=== PATIENT | female | born 1985 | race Caucasian/White ===

== ENCOUNTER 2019-06-05 12:48 | Emergency (ER) | payer SELFPAY ==
[2019-06-05 12:50] VITALS: BP 123/75; PULSE 140; RESP 18; TEMP 36.6; O2SAT 96; BMI 21.9
--- NOTE | 2019-06-05 13:05 | EKG12_ITS ---
Test Reason : SYNCOPE Blood Pressure : / mmHG Vent. Rate : 103 BPM Atrial Rate : 103 BPM P-R Int : 128 ms QRS Dur : 078 ms QT Int : 380 ms P-R-T Axes : 051 083 049 degrees QTc Int : 497 ms Sinus tachycardia Possible Left atrial enlargement Borderline ECG Confirmed by ARSH WILKES, KRIS ([id number]), editorial intern MARTINEZ FORDE ([id number]) on 06/07/2019 8:32:56 AM Referred By: BERRY Confirmed By:KRIS CABAN MD
[2019-06-05 13:12] VITALS: BP 140/86; PULSE 109; RESP 20; TEMP 36.7; O2SAT 97
--- NOTE | 2019-06-05 13:13 | ED.VISSUMM ---
- ER Visit Summary Date of Service: 06/05/19 Chief Complaint: Syncope History of Present Illness: The patient is a 34 F presenting after syncopal episode. Patient states that she was feeling dizzy and lightheaded. She then had a syncopal episode. She denies injury. She recently moved here from [place]. She was admitted to a psychiatric facility approximately 1 month ago for suicidal ideation and cutting her wrists. At that time she was told that she was anemic with a hemoglobin of 6.9. She did not follow-up for this. She denies heavy menstrual cycles, blood in stool, black stool. She denies possibility of . She states she is having diarrhea 2-3 times per day. She denies abdominal pain, nausea, vomiting. Denies fever or cough. Denies chest pain or shortness of breath. Physical Examination: Vitals are stable. Heart rate 140. Patient is afebrile. Alert no acute distress. HEENT exam is unremarkable. Neck is supple. Lungs are clear and equal bilaterally. Heart is regular and tachycardic. Abdomen is soft nontender nondistended. Extremities are unremarkable. Skin is warm and dry. No focal neurologic deficit. Remainder of exam is unremarkable. Emergency Department Course and Treatment: EKG is sinus tachycardia rate of 103. Orthostatics are positive. CBC shows hemoglobin 10.0. Chemistries show glucose 192, BUN 20, creatinine 1.05. Troponin negative. D-dimer negative. hCG negative. On reevaluation patient is feeling anxious. She was given Ativan p.o. She is feeling improved following IV fluids. On reevaluation, she is now feeling improved and back to baseline. She is given Dr. Rosenbaum on-call for no doctor for follow-up. Advised to return to ED for worsening complaints. Disposition: Discharge home Impression: Syncope This note was generated with [employer] dictation software. It may contain incorrect words, spelling, and punctuation that were not noted in review of the chart prior to signing ED Disposition - Plan for ED Patient: Instructions: SYNCOPE, Unk Cause Referrals: Neil Rosenbaum MD [STAFF PHYSICIAN] - Izabel Aparicio MD [STAFF PHYSICIAN] -
[2019-06-05 13:27] LABS: Absolute Lymphocyte Count 1.98 X10^3/uL (0.83-4.51); Absolute Neutrophil Count 5.9 X10^3/uL (2.0-7.7); Basophil# 0.04 X10^3/uL; Basophil% 0.5 % (0-1); Eosinophil# 0.03 X10^3/uL; Eosinophils% 0.4 % (0-5); Hematocrit 33.7 % (37-47); Lymphocyte # 1.98 X10^3/ul (4.0); Lymphocyte % 23.1 % (19-41); Mean Corp Hgb Conc 29.7 g/dL (32-36); Mean Corpuscular Hgb 23.2 pg (27.0-32.0); Mean Corpuscular Volume 78.2 fL (81-99); Mean Platelet Vol. 12.5 fl (6.2-12.0); Monocyte# 0.58 X10^3/uL; Monocyte% 6.8 % (0-10); NRBC Flagged by Analyzer 0 % (0-5); Neutrophil # 5.87 X10^3/uL (2.7-7.7); Neutrophil % 68.5 % (47-70); Platelet Count 178 K/mm3 (150-450); RBC Distribution Width CV 14.7 % (11.6-14.6); RBC Distribution Width SD 41.7 fl (35.1-43.9); Red Blood Count 4.31 M/mm3 (4.2-5.4); White Blood Count 8.6 K/mm3 (4.4-11.0)
--- NOTE | 2019-06-05 13:30 | NURSING ---
LAB CALLED ABOUT HEMOLIZED LAB
[2019-06-05 13:43] LABS: Anion Gap 12 (5-15); BUN 20 mg/dL (7-18); Calcium,Total 8.6 mg/dL (8.5-10.1); Chloride 103 mmol/L (98-107); Creatinine, Serum 1.05 mg/dL (0.55-1.02); EST Glomerular Filtration Rate 64 mL/min (>60); Est Glom Filt Rate - Afr Amer 77 mL/min (>60); Estimated Creatinine Clearance 73.41 ml/min; Glucose 192 mg/dL (74-106); Potassium 3.7 mmol/L (3.5-5.1); Sodium Level 137 mmol/L (136-145)
[2019-06-05 13:45] LABS: Internal QC Validated? YES +Cl - CLEAR BKGD; Pregnancy, Serum, hCG Quali. NEGATIVE Negative
[2019-06-05 13:53] LABS: D-Dimer Quantitative (DVT/PE) <= 0.27 FEU/ug/m (0.27-0.49)
[2019-06-05 14:13] VITALS: BP 106/77; BP 118/80; BP 148/83; PULSE 114; PULSE 136; PULSE 147; RESP 16; O2SAT 97
[2019-06-05] MEDS: 0.9% Normal Saline 1,000 ML 1000 ML IV (14:13)
[2019-06-05] MEDS: LORazepam 1 MG Tablet PO (14:17)
[2019-06-05] MEDS: 0.9% Normal Saline 1,000 ML 999 ML IV (15:25)
[2019-06-05 15:26] VITALS: BP 148/78; PULSE 106; RESP 17; TEMP 36.3; O2SAT 96
--- NOTE | 2019-06-05 16:20 | ED.DEP ---
ED Disposition - Plan for ED Patient: Instructions: SYNCOPE, Unk Cause Referrals: Neil Rosenbaum MD [STAFF PHYSICIAN] -
--- NOTE | 2019-06-05 16:33 | ED.DEP ---
ED Disposition - Plan for ED Patient: Instructions: SYNCOPE, Unk Cause Referrals: Neil Rosnebaum MD [STAFF PHYSICIAN] - Izabel Aparicio MD [STAFF PHYSICIAN] -
[2019-06-05 16:46] VITALS: BP 128/87; PULSE 107; RESP 16; TEMP 36.8; O2SAT 97
== END 2019-06-05 16:52 | disposition home or self-care (01) ==
PROVIDERS: Emergency Provider Emergency Medicine
DX: R55 Syncope and collapse (principal); R19.7 Diarrhea, unspecified; Z86.2 Personal history of diseases of the blood and blood-forming organs and certain disorders involving the immune mechanism
CPT/HCPCS: 80048; 84484; 84703; 85025; 85379; 93005; 96360; 96361; 99285; J7030; A4216

== ENCOUNTER 2019-06-23 18:45 | Emergency (ER) | payer SELFPAY ==
[2019-06-23 18:47] VITALS: BP 147/100; PULSE 127; RESP 15; TEMP 37.3; O2SAT 99; BMI 21.9
--- NOTE | 2019-06-23 19:10 | ED.DCSUM_ITS ---
History of Present Illness Chief Complaint: Suicidal Informant: Family Onset: Month(s) Maximum Severity: Mild Narrative: Coronavirus/emergency no exposures no symptoms The patient presents with the sister the patient history of bipolar disorder she was discharged from the hospital in [place] related to exacerbation of bipolar suicidal ideation a few months ago she was living with family in [place] she has issues related to taking her meds follow-up etc. she is now moved to live with her sister in the [facility] area. The patient's not been taking any of her medications for both her behavioral health disorder, she has become incre asingly anxious and nervous concerned she might be arrested, occasionally the patient verbalizes suicidal ideation to the sister but nothing specific, the patient has a distant history for illicit drug use including opioids methamphetamine and cocaine none recently at one time she was on Suboxone in the distant past, there is no history of or drug use recently. The sister has arranged for the patient to be admitted to the psychiatric hospital in [facility] but that facility asked that she obtain screening labs before they will accept her the sister is going to drive her to [place] to be admitted to that facility and brought her here to have those tests done the patient has no plan and the sister is comfortable with her discharge home and the sister is very confident she can get her admitted to the facility in [place] as she has been talking to them and has arranged for all that Past Medical History - Allergies and Home Meds Allergies/Adverse Reactions: Allergies No Known Allergies Allergy (Verified 06/23/19 18:46) Primary Care Physician: Care Physician,No Primary [Primary Care Provider] - Past Medical History: - Smoking Status: Never smoker Review of Systems ROS: - Fluids as above General: Denies: Chills, Fever, Sweats Eyes: Denies: Visual changes - bilaterally, Diplopia ENT: Denies: Rhinorrhea, Sore throat Cardiovascular: Denies: Chest pain, Palpitations Respiratory: Denies: Dyspnea, Cough, Dyspnea on exertion Gastrointestinal: Denies: Abdominal pain, Nausea, Vomiting, Diarrhea, Melena, Hematochezia Genitourinary: Denies: Dysuria, Hematuria, Frequency Musculoskeletal: Denies: Back pain, Extremity Pain Skin: Denies: Rash, Wounds Neurological: Denies: Headache, Weakness, Numbness Psych: Reports: Depression, Suicidal thoughts Physical Exam Vital Signs/Narrative: Vital Signs Temp Pulse Resp BP Pulse Ox 06/23/19 18:47 99.1 F 127 H 15 147/100 H 99 General: Well nourished, Well developed, No Acute Distress Head: Normocephalic, Atraumatic Eyes: Perrl, EOMI ENT: Moist mucous membranes, No rhinorrhea Neck: Supple, Nontender Cardiovascular: Regular rate, Regular rhythm, No murmurs Respiratory: No distress, CTA bilaterally, Chest nontender Abdomen: Soft, Nontender, Nondistended, Normal bowel sounds Back: Nontender, Normal Inspection Extremities: Nontender, No edema Skin: Normal color, No rash Neurological: Alert, Oriented x3, Cranial nerves II-XII grossly intact, Normal Strength, Normal Sensation Psychological: Normal affect, Normal Mood Diagnostic/Tx/Re-eval - Medical Decision Making The patient reluctantly agreed to provide the blood testing through for the medical screening, she does not wish to provide urinalysis at this time we discussed all the above with the sister confirm with her that she is able to take her sister to [place] to be admitted to that facility per the instruction she was given by the [facility], at this time will provide assist with copies of the medical screening labs and she will be discharged with sister to follow-up with per the sister is called the [facility] The suicidal ideation is also something that is been intermittent and longstanding and again the sister is very comfortable with this plan Home stable with sister to be admitted to a mental health facility in [facility] Final impression Exacerbation of bipolar disorder, suicidal ideation ED Disposition - Plan for ED Patient: Diagnosis: Suicidal ideation Referrals: Care Physician,No Primary [Primary Care Provider] - Additional Instructions: Follow-up for admission with the [facility] you have been talking to and have a range of the admission, return for change in symptoms
[2019-06-23 19:45] LABS: Absolute Lymphocyte Count 2.68 X10^3/uL (0.83-4.51); Absolute Neutrophil Count 9.6 X10^3/uL (2.0-7.7); Basophil# 0.06 X10^3/uL; Basophil% 0.4 % (0-1); Eosinophil# 0.03 X10^3/uL; Eosinophils% 0.2 % (0-5); Hematocrit 40.3 % (37-47); Hemoglobin 11.9 g/dL (12.0-15.0); Lymphocyte # 2.68 X10^3/ul (4.0); Mean Corp Hgb Conc 29.5 g/dL (32-36); Mean Corpuscular Hgb 23.1 pg (27.0-32.0); Mean Corpuscular Volume 78.3 fL (81-99); Mean Platelet Vol. 12.2 fl (6.2-12.0); Monocyte# 0.92 X10^3/uL; Monocyte% 6.9 % (0-10); NRBC Flagged by Analyzer 0 % (0-5); Neutrophil # 9.63 X10^3/uL (2.7-7.7); Neutrophil % 72.1 % (47-70); Platelet Count 328 K/mm3 (150-450); RBC Distribution Width CV 15.2 % (11.6-14.6); RBC Distribution Width SD 42.6 fl (35.1-43.9); Red Blood Count 5.15 M/mm3 (4.2-5.4); White Blood Count 13.4 K/mm3 (4.4-11.0)
[2019-06-23] MEDS: LORazepam 1 MG Tablet PO (19:45)
[2019-06-23 19:46] LABS: Internal QC Validated? YES +Cl - CLEAR BKGD
[2019-06-23 19:48] LABS: Pregnancy, Serum, hCG Quali. NEGATIVE Negative
[2019-06-23 19:54] LABS: Anion Gap 6 (5-15); BUN 16 mg/dL (7-18); BUN/Creat Ratio 13.9 RATIO (10-20); Calcium,Total 9.6 mg/dL (8.5-10.1); Chloride 104 mmol/L (98-107); Creatinine, Serum 1.15 mg/dL (0.55-1.02); EST Glomerular Filtration Rate 57 mL/min (>60); Est Glom Filt Rate - Afr Amer 69 mL/min (>60); Estimated Creatinine Clearance 67.03 ml/min; Glucose 139 mg/dL (74-106); Potassium 3.8 mmol/L (3.5-5.1); Sodium Level 137 mmol/L (136-145)
[2019-06-23 20:07] LABS: Alcohol, Blood (Medical)-Serum < 3.0 mg/dL
--- NOTE | 2019-06-23 20:09 | ED.RN ---
sister has been in contact with Betty at [facility]. Sister is taking responsibility of patient and plans to take her to [facility] for eval. Was given 1 mg of PO ativan. Lab results sent with sister and patient per request.
[2019-06-23 20:14] LABS: Amphetamine Urine VISTA NEGATIVE (<1000 ng/mL); Barbiturate Urine VISTA NEGATIVE (< 200 ng/mL); Benzodiazepine Urine VISTA NEGATIVE (< 200 ng/mL); Cocaine Urine VISTA NEGATIVE (< 300 ng/mL); Ecstacy Urine VISTA NEGATIVE (< 500 ng/mL); Methadone Urine VISTA NEGATIVE (< 300 ng/mL); PCP Urine VISTA NEGATIVE (< 25 ng/mL); THC Urine VISTA NEGATIVE (< 50 ng/mL); Vista UDS pH Range 5
== END 2019-06-23 20:32 | disposition home or self-care (01) ==
PROVIDERS: Emergency Provider Emergency Medicine
DX: F31.9 Bipolar disorder, unspecified (principal); R45.851 Suicidal ideations; Z79.899 Other long term (current) drug therapy
CPT/HCPCS: 80048; 80307; 80320; 84703; 85025; 99283; G0480